=== PATIENT | male | born 1995 | race African-American/Black ===

== ENCOUNTER 2017-10-17 11:46 | Emergency (ER) | payer MEDICARE, OTHER ==
[2017-10-17] MEDS: cefTRIAXone IM 250 MG VIAL IM (12:45)
[2017-10-17] MEDS: AZITHROMYCIN 250 MG TABLET. PO (12:45)
[2017-10-17 13:09] LABS: BILIRUBIN,URINE NEGATIVE (NEG); GLUCOSE,URINE NEGATIVE (NEG); NITRITE,URINE NEGATIVE (NEG); PH,URINE 6.5; PROTEIN,URINE NEGATIVE (NEG-TRACE)
[2017-10-17 13:16] LABS: BACTERIA,URINE 0 /HPF (0-FEW); RBC,URINE 0 /HPF (0-2)
[2017-10-17 13:17] LABS: SQUAMOUS EPITHELIAL CELL,UR OCC /LPF
== END 2017-10-17 13:31 | disposition home or self-care (01) ==
LOC: ER 11:46
DX: S60.222A Contusion of left hand, initial encounter (principal); M79.641 Pain in right hand; N39.0 Urinary tract infection, site not specified; J45.909 Unspecified asthma, uncomplicated; F90.9 Attention-deficit hyperactivity disorder, unspecified type; G89.29 Other chronic pain; Y04.0XXA Assault by unarmed brawl or fight, initial encounter; Y93.89 Activity, other specified; Y92.89 Other specified places as the place of occurrence of the external cause; Y99.8 Other external cause status
CPT/HCPCS: 29125; 73130; 81001; 87086; 87491; 87591; 96372; 99285-25; J0696; Q0144